=== PATIENT | female | born 1960 | race Hispanic/Latino ===

== ENCOUNTER 2020-10-16 01:13 | Emergency (ER) | payer SELFPAY ==
[2020-10-16] MEDS ORDERED: ONDANSETRON 4 MG/2 ML VIAL ONE (01:46)
[2020-10-16 01:47] LABS: Absolute Lymphocytes (CBC) 1.7 K/uL (0.7-4.9); Basophils % 0.4 % (0-1.3); Hematocrit 37.2 % (36.0-45.0); Lymphocytes % 17.5 % (15.3-44.8); MPV 9.3 fL (7.6-11.3); RBC Red Blood Cell Count 4.24 M/uL (3.86-4.86)
[2020-10-16 01:56] LABS: Albumin 3.5 g/dL (3.4-5.0); Bilirubin Direct 0.1 mg/dL (0-0.2); Bilirubin Total 0.4 mg/dL (0.2-1.0); Potassium 3.8 mmol/L (3.5-5.1); Protein, Total 7.6 g/dL (6.4-8.2)
--- NOTE | 2020-10-16 03:03 | ER ---
Nurse's Notes [facility] Name: Brittany Mendiola Age: 60 yrs Sex: Female : 1960 Arrival Date: 10/16/2020 Time: 01:14 Bed 27 Private MD: Diagnosis: Calculus of lower urinary tract, unspecified Presentation: 10/16 01:17 Chief complaint: EMS states: they were toned out for report of pt with right upper quad bb pain and vomited x 1. Coronavirus screen: At this time, the client does not indicate any symptoms associated with coronavirus-19. Ebola Screen: No symptoms or risks identified at this time. Initial Sepsis Screen: Does the patient meet any 2 criteria? No. Patient's initial sepsis screen is negative. Does the patient have a suspected source of infection? No. Patient's initial sepsis screen is negative. Risk Assessment: Do you want to hurt yourself or someone else? Patient reports no desire to harm self or others. Onset of symptoms was October 16, 2020. 01:17 Method Of Arrival: EMS: [facility] bb 01:17 Acuity: ALFREDO 3 bb Triage Assessment: 01:44 General: Appears in no apparent distress. General: Behavior is calm, cooperative. Pain: ak2 Denies pain. Historical: - Allergies: 01:19 PENICILLINS; bb - Home Meds: 01:19 None [Active]; bb - PMHx: 01:19 None; bb - PSHx: 01:19 None; bb - Immunization history:: Adult Immunizations up to date. - Social history:: Smoking status: unknown. - Family history:: not pertinent. - Hospitalizations: : No recent hospitalization is reported. Screenin:43 Abuse screen: Denies threats or abuse. Denies injuries from another. Nutritional ak2 screening: No deficits noted. Tuberculosis screening: No symptoms or risk factors identified. Fall Risk None identified. Vital Signs: 01:17 BP 155 / 73; Pulse 77; Resp 18 S; Temp 97.6(O); Pulse Ox 97% on R/A; Weight 102.06 kg bb (R); Height 5 ft. 0 in. (152.40 cm) (R); Pain 0/10; 02:03 BP 136 / 78; Pulse 71; Resp 16; Pulse Ox 97% ; ak2 02:52 BP 125 / 74; Pulse 71; Resp 16; Pulse Ox 98% ; ak2 01:17 Body Mass Index 43.94 (102.06 kg, 152.40 cm) ED Course: 01:14 Patient arrived in ED. bp1 01:15 Vega Self MD is Attending Physician. rn 01:19 Triage completed. bb 01:19 Napoleon Walden is Primary Nurse. ak2 01:19 Arm band placed on Patient placed in an exam room, on a stretcher, on pulse oximetry. bb 01:43 No apparent distress. ak2 01:43 Patient has correct armband on for positive identification. ak2 01:43 No provider procedures requiring assistance completed. Inserted saline lock: 20 gauge ak2 in right antecubital area, using aseptic technique. 02:30 CT Abd/Pelvis - IV Contrast Only In Process Unspecified. EDMS 03:01 Chris Corral MD is Referral Physician. rn 03:07 IV discontinued. ak2 Administered Medications: 01:37 Drug: Zofran (Ondansetron) 4 mg Route: IVP; Site: right antecubital; ak2 02:51 Drug: TORadol (ketorolac) 30 mg Route: IVP; Site: right antecubital; ak2 02:52 Drug: Flomax (tamsulosin) 0.4 mg Route: PO; ak2 Outcome: 03:03 Discharge ordered by . rn 03:06 Discharged to home ambulatory. ak2 03:06 Condition: stable 03:06 Discharge instructions given to patient, Prescriptions given X 1. 03:07 Patient left the ED. ak2 Signatures: Dispatcher [employer] EDMS Niurka Curtis RN RN bb Vega Self MD MD rn [place], [facility] Napoleon Walden ak2
--- NOTE | 2020-10-16 03:03 | EDPHYS ---
Physician Documentation [facility] Name: Brittany Mendiola Age: 60 yrs Sex: Female : 1960 Arrival Date: 10/16/2020 Time: 01:14 Bed 27 Private MD: ED Physician Vega Self HPI: 10/16 01:17 This 60 yrs old Female presents to ER via Unassigned with complaints of abd rn pain, vomiting. 01:17 The patient presents with abdominal pain right lower quadrant. Onset: The rn symptoms/episode began/occurred just prior to arrival. The symptoms do not radiate. Associated signs and symptoms: Pertinent positives: nausea and vomiting, Pertinent negatives: blood in stools, fever. The symptoms are described as sharp. Modifying factors: The symptoms are alleviated by nothing, the symptoms are aggravated by nothing. Severity of pain: At its worst the pain was mild in the emergency department the pain has resolved. The patient has not experienced similar symptoms in the past. The patient has not recently seen a physician. At work, about to eat, reports nausea, vomiting x 2. . Historical: - Allergies: 01:19 PENICILLINS; bb - Home Meds: 01:19 None [Active]; bb - PMHx: 01:19 None; bb - PSHx: 01:19 None; bb - Immunization history:: Adult Immunizations up to date. - Social history:: Smoking status: unknown. - Family history:: not pertinent. - Hospitalizations: : No recent hospitalization is reported. ROS: 01:25 Constitutional: Negative for fever, chills, and weight loss, Eyes: Negative for injury, rn pain, redness, and discharge, Neck: Negative for injury, pain, and swelling, Cardiovascular: Negative for chest pain, palpitations, and edema, Respiratory: Negative for shortness of breath, cough, wheezing, and pleuritic chest pain, Abdomen/GI: + RLQ abd pain and nausea/vomiting Back: Negative for injury and pain, : Negative for injury, bleeding, discharge, and swelling, MS/Extremity: Negative for injury and deformity, Skin: Negative for injury, rash, and discoloration, Neuro: Negative for headache, weakness, numbness, tingling, and seizure. Exam: 01:25 Constitutional: This is a well developed, well nourished patient who is awake, alert, rn and in no acute distress. Head/Face: Normocephalic, atraumatic. Eyes: Periorbital areas with no swelling, redness, or edema. ENT: MMM Cardiovascular: Regular rate and rhythm. No pulse deficits. Respiratory: No increased work of breathing, no retractions or nasal flaring. Abdomen/GI: soft, non-tender, no masses Skin: Warm, dry MS/ Extremity: Pulses equal, no cyanosis. Neuro: Awake and alert, GCS 15 Vital Signs: 01:17 BP 155 / 73; Pulse 77; Resp 18 S; Temp 97.6(O); Pulse Ox 97% on R/A; Weight 102.06 kg bb (R); Height 5 ft. 0 in. (152.40 cm) (R); Pain 0/10; 02:03 BP 136 / 78; Pulse 71; Resp 16; Pulse Ox 97% ; ak2 02:52 BP 125 / 74; Pulse 71; Resp 16; Pulse Ox 98% ; ak2 01:17 Body Mass Index 43.94 (102.06 kg, 152.40 cm) bb MDM: 01:16 Patient medically screened. rn 02:59 Differential diagnosis: appendicitis, diverticulitis, non-specific abd pain, rn Ureterolithiasis. Data reviewed: vital signs, nurses notes, lab test result(s). Counseling: I had a detailed discussion with the patient and/or guardian regarding: the historical points, exam findings, and any diagnostic results supporting the discharge/admit diagnosis, lab results, radiology results, the need for outpatient follow up, to return to the emergency department if symptoms worsen or persist or if there are any questions or concerns that arise at home. Response to treatment: the patient's symptoms have markedly improved after treatment, the patient's symptoms have resolved after treatment, the patient's condition has returned to base line, the patient is now symptom free, and as a result, I will discharge patient. Special discussion: I discussed with the patient/guardian in detail that at this point there is no indication for admission to the hospital. It is understood, however, that if the symptoms persist or worsen the patient needs to return immediately for re-evaluation. Based on the history and exam findings, there is no indication for further emergent testing or inpatient evaluation. I discussed with the patient/guardian the need to see the urologist for further evaluation of the symptoms. ED course: Pt with distal 3mm stone, pain resolved, states has had kidney stones in past, will dc home with prn pain medication and urology f/u.. 10/16 01:16 Order name: Basic Metabolic Panel; Complete Time: 02:05 rn 10/16 01:16 Order name: CBC with Diff; Complete Time: 02:05 rn 10/16 01:16 Order name: Hepatic Function; Complete Time: 02:05 rn 10/16 01:16 Order name: Lipase; Complete Time: 02:05 rn 10/16 01:16 Order name: CT Abd/Pelvis - IV Contrast Only rn 10/16 01:16 Order name: IV Saline Lock rn 10/16 01:16 Order name: Labs collected and sent rn Administered Medications: 01:37 Drug: Zofran (Ondansetron) 4 mg Route: IVP; Site: right antecubital; ak2 02:51 Drug: TORadol (ketorolac) 30 mg Route: IVP; Site: right antecubital; ak2 02:52 Drug: Flomax (tamsulosin) 0.4 mg Route: PO; ak2 Disposition: 10/16/20 03:03 Discharged to Home. Impression: Calculus of lower urinary tract, unspecified. - Condition is Stable. - Discharge Instructions: Kidney Stones, Dietary Guidelines to Help Prevent Kidney Stones. - Prescriptions for Zofran ODT 4 mg Oral tablet,disintegrating - place 1 tablet by TRANSLINGUAL route every 8 hours As needed; 20 tablet. - Medication Reconciliation Form, Thank You Letter, Antibiotic Education, Prescription Opioid Use form. - Follow up: Chris Corral MD; When: As needed; Reason: Recheck today's complaints, Re-evaluation by your physician. - Problem is new. - Symptoms have improved. Signatures: Dispatcher [employer] EDMS Niurka Curtis RN RN bb Nieto, Roman, MD MD rn [place], Anthony ak2 Corrections: (The following items were deleted from the chart) 03:07 03:03 10/16/2020 03:03 Discharged to Home. Impression: Calculus of lower urinary tract, ak2 unspecified. Condition is Stable. Forms are Medication Reconciliation Form, Thank You Letter, Antibiotic Education, Prescription Opioid Use. Follow up: Chris Corral; When: As needed; Reason: Recheck today's complaints, Re-evaluation by your physician. Problem is new. Symptoms have improved. rn
[2020-10-16] MEDS ORDERED: KETOROLAC 30 MG/ML INJ ONE (03:08)
[2020-10-16] MEDS ORDERED: TAMSULOSIN 0.4 MG SR CAP ONE (03:08)
[2020-10-16 03:15] VITALS: TEMP 97.6
[2020-10-16 03:17] VITALS: BP 125/74; O2SAT 98
--- NOTE | 2020-10-16 10:56 | RAD REPORT ---
EXAM DESCRIPTION: CT - Abdomen Pelvis W Contrast - 10/16/2020 6:27 am CLINICAL HISTORY: Abd pain;Nausea / vomiting COMPARISON: None Available. TECHNIQUE: CT of the abdomen and pelvis performed following IV administration of iodinated contras t. This exam was performed according to our departmental dose-optimization program, which includes au tomated exposure control, adjustment of the mA and/or kV according to patient size and/or use of iter ative reconstruction technique. FINDINGS: Lung Bases: Minimal bilateral dependent atelectasis. Bones: Multilevel endplate spondylosis. Abdomen: Liver: The liver has normal size and decreased density. No intrahepatic biliary dilatation. Gallbladder: No calcified gallstones. Spleen, Pancreas, and Adrenal Glands: The spleen, pancreas, and adrenal glands are unremarkable. Kidneys: There is a 0.3 cm obstructing calculus in the distal right ureter producing mild right hyd roureter and hydronephrosis. Bilateral nonobstructing nephrolithiasis. No left-sided hydronephrosis. Vasculature: Aortoiliac atherosclerosis. IVC is unremarkable. The portal vein is patent. The proxim al visceral and renal arteries are patent. Stomach: The stomach and duodenum have normal course. Other: No free intraperitoneal air. No free fluid or lymphadenopathy. Pelvis: Bladder: Urinary bladder is unremarkable. Bowel: No dilated loops of large or small bowel. Appendix: Normal appendix. Pelvis: Uterus is not enlarged. IMPRESSION: 1. 0.3 cm obstructing calculus in the distal right ureter producing mild right hydrour eter and hydronephrosis. 2. Bilateral nonobstructing nephrolithiasis. 3. Hepatic steatosis. Electronically signed by: Kameron Garland 10/16/2020 2:40 AM CDT Due to temporary technical issues with the PACS/Fluency reporting system, reports are being signed by the in house radiologist without review as a courtesy to ensure prompt reporting. The interpreting r adiologist is fully responsible for the content of the report.
== END 2020-10-16 03:07 | disposition home or self-care (01) ==
LOC: ER 01:13
DX: N21.9 Calculus of lower urinary tract, unspecified (principal); Z88.0 Allergy status to penicillin
CPT/HCPCS: 36415; 74177; 80048; 80076; 83690; 85025; 96374; 96375; 99284; J2405; Q9967